=== PATIENT | female | born 1930 | race Caucasian/White ===

== ENCOUNTER 2017-07-08 06:49 | Inpatient (IN) ==
[2017-07-08] MEDS ORDERED: MORPHINE 2 MG/1 ML SYRINGE IV STA (09:00)
[2017-07-08] MEDS ORDERED: ONDANSETRON 4 MG/2 ML VIAL IV STA (09:00)
[2017-07-08] MEDS ORDERED: ONDANSETRON 4 MG/2 ML VIAL ONE (09:01)
[2017-07-08] MEDS ORDERED: MORPHINE 2 MG/1 ML SYRINGE ONE (09:01)
[2017-07-08] MEDS ORDERED: MORPHINE 2 MG/1 ML SYRINGE IV PRN (10:36)
[2017-07-08] MEDS ORDERED: ACETAMINOPHEN 325 MG TABLET PO PRN (10:36)
[2017-07-08] MEDS ORDERED: ONDANSETRON 4 MG/2 ML VIAL IV PRN (10:36)
[2017-07-08 10:57] LABS: Basophils # 0.1 10*3/uL (0.0-0.2); Basophils % 0.6 % (0.0-0.8); Eosinophils % 0.3 % (0.00-10.9); Hematocrit 38.7 VOL% (35.7-47.0); Hemoglobin 12.6 GM/DL (12.0-16.0); Immature Granulocytes % 0.4 %; Immature Granulocytes Absolute 0.04 #; Lymphocytes # 1.6 10*3/uL (1.4-4.0); Lymphocytes % 16.6 % (21.3-54.2); Mean Corpuscular HGB Conc 32.6 GM/DL (32-36); Mean Corpuscular Hemoglobin 32 PG (27-34); Mean Corpuscular Volume 97.7 FL (87-102); Mean Platelet Volume 13.6 FL (9.6-12.0); Monocytes # 0.7 10*3/uL (0.11-0.8); Monocytes % 7.2 % (1.7-12.7); Neutrophils # 7.3 10*3/uL (1.4-7.4); Neutrophils % 74.9 % (38.7-73.9); Platelet Count 200 T/CUMM (130-400); Red Blood Count 3.96 MC/CUMM (3.8-5.5); Red Cell Distribution Width 13.3 % (9.3-17.3); White Blood Count 9.7 T/CUMM (4-12)
[2017-07-08 11:11] LABS: Albumin 3.1 G/DL (3.4-5.0); Bilirubin,Total 0.5 MG/DL (0.2-1.0); Calcium 9.5 MG/DL (8.5-10.1); Osmolality,Calculated 283.1 MOS/KG (273-304); Potassium 4.2 MMOL/L (3.5-5.1)
[2017-07-08] MEDS: PANTOPRAZOLE 40 MG TABLET PO SCH (11:26)
[2017-07-08] MEDS: DOCUSATE SODIUM 100 MG CAPSULE PO SCH ×2 (11:26→20:31)
[2017-07-08] MEDS: METHOCARBAMOL 750 MG TABLET PO SCH ×2 (13:54→20:31)
[2017-07-08] MEDS ORDERED: FLUTICASONE 50 MCG NASAL SPRAY 16 GM BOTTLE BOTH NARES PRN (13:59)
[2017-07-08] MEDS ORDERED: KETOROLAC 30 MG/1 ML VIAL IV ONE (14:00)
[2017-07-08] MEDS: AMITRIPTYLINE 10 MG TABLET PO SCH ×2 (16:03→20:31)
[2017-07-08] MEDS: ENOXAPARIN 40 MG/0.4 ML SYRINGE SUBCUT SCH (20:32)
[2017-07-09] MEDS: METHOCARBAMOL 750 MG TABLET PO SCH ×4 (03:20→20:44)
[2017-07-09] MEDS: RALOXIFENE 60 MG TABLET PO SCH (08:13)
[2017-07-09] MEDS: VALSARTAN/HCTZ 160-12.5 MG TABLET PO SCH (08:13)
[2017-07-09] MEDS: ATORVASTATIN 20 MG TABLET PO SCH (08:13)
[2017-07-09] MEDS: PANTOPRAZOLE 40 MG TABLET PO SCH (08:13)
[2017-07-09] MEDS: AMITRIPTYLINE 10 MG TABLET PO SCH ×3 (08:13→20:44)
[2017-07-09] MEDS: MULTIVITAMIN (BEROCCA) TABLET PO SCH (08:13)
[2017-07-09] MEDS: DOCUSATE SODIUM 100 MG CAPSULE PO SCH ×2 (08:13→20:44)
[2017-07-09] MEDS ORDERED: NON-FORMULARY MEDICATION (Esomeprazole Magnesium [Nexium] 40 MG) PO SCH (09:00)
[2017-07-09] MEDS ORDERED: ERGOCALCIFEROL 50,000 UNIT CAPSULE PO SCH (09:00)
[2017-07-09] MEDS: KETOROLAC 30 MG/1 ML VIAL IV PRN ×2 (11:48→20:45)
[2017-07-09] MEDS: ENOXAPARIN 40 MG/0.4 ML SYRINGE SUBCUT SCH (20:43)
[2017-07-10] MEDS: METHOCARBAMOL 750 MG TABLET PO SCH ×4 (02:41→20:42)
[2017-07-10 05:41] LABS: Calcium 8.8 MG/DL (8.5-10.1); Osmolality,Calculated 280.4 MOS/KG (273-304); Potassium 4.4 MMOL/L (3.5-5.1)
[2017-07-10 06:22] LABS: Basophils % 0.3 % (0.0-0.8); Eosinophils # 0.3 10*3/uL (0.0-0.87); Eosinophils % 4.9 % (0.00-10.9); Hematocrit 36.1 VOL% (35.7-47.0); Hemoglobin 12.3 GM/DL (12.0-16.0); Immature Granulocytes % 0.6 %; Immature Granulocytes Absolute 0.04 #; Lymphocytes # 2.1 10*3/uL (1.4-4.0); Mean Corpuscular HGB Conc 34.1 GM/DL (32-36); Mean Corpuscular Hemoglobin 33 PG (27-34); Mean Corpuscular Volume 97.8 FL (87-102); Mean Platelet Volume 12.5 FL (9.6-12.0); Monocytes # 0.6 10*3/uL (0.11-0.8); Monocytes % 9.2 % (1.7-12.7); Neutrophils # 3.5 10*3/uL (1.4-7.4); Platelet Count 164 T/CUMM (130-400); Red Blood Count 3.69 MC/CUMM (3.8-5.5); Red Cell Distribution Width 13.5 % (9.3-17.3); White Blood Count 6.5 T/CUMM (4-12)
[2017-07-10] MEDS: DOCUSATE SODIUM 100 MG CAPSULE PO SCH ×2 (09:33→20:41)
[2017-07-10] MEDS: ATORVASTATIN 20 MG TABLET PO SCH (09:33)
[2017-07-10] MEDS: PANTOPRAZOLE 40 MG TABLET PO SCH (09:33)
[2017-07-10] MEDS: MULTIVITAMIN (BEROCCA) TABLET PO SCH (09:33)
[2017-07-10] MEDS: RALOXIFENE 60 MG TABLET PO SCH (09:34)
[2017-07-10] MEDS: VALSARTAN/HCTZ 160-12.5 MG TABLET PO SCH (09:34)
[2017-07-10] MEDS: AMITRIPTYLINE 10 MG TABLET PO SCH ×3 (09:34→20:42)
[2017-07-10] MEDS: ENOXAPARIN 40 MG/0.4 ML SYRINGE SUBCUT SCH (20:43)
[2017-07-11] MEDS: METHOCARBAMOL 750 MG TABLET PO SCH ×4 (02:51→21:53)
[2017-07-11] MEDS: ATORVASTATIN 20 MG TABLET PO SCH (08:36)
[2017-07-11] MEDS: PANTOPRAZOLE 40 MG TABLET PO SCH (08:36)
[2017-07-11] MEDS: MULTIVITAMIN (BEROCCA) TABLET PO SCH (08:36)
[2017-07-11] MEDS: AMITRIPTYLINE 10 MG TABLET PO SCH ×3 (08:37→21:54)
[2017-07-11] MEDS: DOCUSATE SODIUM 100 MG CAPSULE PO SCH ×2 (08:37→21:55)
[2017-07-11] MEDS: VALSARTAN/HCTZ 160-12.5 MG TABLET PO SCH (08:37)
[2017-07-11] MEDS: RALOXIFENE 60 MG TABLET PO SCH (08:37)
[2017-07-11] MEDS: MELOXICAM 7.5 MG TABLET PO SCH (13:58)
[2017-07-11] MEDS: ENOXAPARIN 40 MG/0.4 ML SYRINGE SUBCUT SCH (21:55)
[2017-07-12] MEDS: METHOCARBAMOL 750 MG TABLET PO SCH ×2 (03:55→09:07)
[2017-07-12] MEDS: MULTIVITAMIN (BEROCCA) TABLET PO SCH (09:06)
[2017-07-12] MEDS: VALSARTAN/HCTZ 160-12.5 MG TABLET PO SCH (09:06)
[2017-07-12] MEDS: RALOXIFENE 60 MG TABLET PO SCH (09:06)
[2017-07-12] MEDS: MELOXICAM 7.5 MG TABLET PO SCH (09:07)
[2017-07-12] MEDS: ATORVASTATIN 20 MG TABLET PO SCH (09:07)
[2017-07-12] MEDS: DOCUSATE SODIUM 100 MG CAPSULE PO SCH (09:07)
[2017-07-12] MEDS: AMITRIPTYLINE 10 MG TABLET PO SCH (09:07)
[2017-07-12] MEDS: PANTOPRAZOLE 40 MG TABLET PO SCH (09:08)
[2017-07-12 11:43] VITALS: BP 114/58
== END 2017-07-12 12:43 | disposition home health service (06) | DRG 554 ==
LOC: EDUNIT# → EDBD → N.EDINP 06:49 → N.ED 06:49 → N.EDINP 09:54 → N.2E 10:06
PROVIDERS: ADMIT Internal Medicine; ATTEND Internal Medicine